=== PATIENT | female | born 1980 | race Caucasian/White ===

== ENCOUNTER 2024-09-14 15:02 | Outpatient (AMB) | payer OTHER, SELFPAY ==
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
[2024-09-14 15:04] VITALS: BP 104/60; PULSE 53; O2SAT 96; BMI 22.8
== END 2024-09-14 15:59 | disposition home or self-care (01) ==
LOC: HO.ENCR 15:02
PROVIDERS: PCP Family Medicine; Visit Provider Student in an Organized Health Care Education/Training Program
DX: R35.89 Other polyuria (principal)
CPT/HCPCS: 99204

== ENCOUNTER → 2024-09-14 15:02 | Outpatient (BNVA) | payer OTHER, SELFPAY | PROVIDERS: PCP Family Medicine; Visit Provider Student in an Organized Health Care Education/Training Program | DX: R35.89 Other polyuria (principal) | CPT/HCPCS: 99202 ==

== ENCOUNTER 2024-09-16 08:58 | Outpatient (REF) | payer OTHER, SELFPAY ==
[2024-09-16 10:02] LABS: Anion Gap 11 (12-20); Blood Urea Nitrogen 11 mg/dL (9-16); Calcium 9.4 mg/dL (8.4-10.2); Carbon Dioxide 24 mmol/L (22-29); Chloride 108 mmol/L (96-108); Estimated Glomerular Filt Rate > 60; Glucose Random 97 mg/dL (60-115); Potassium 4.1 mmol/L (3.3-5.1); Sodium 139 mmol/L (135-145)
[2024-09-16 10:34] LABS: Sodium Urine Random < 20.0 mmol/L
[2024-09-16 11:11] LABS: Osmolality, Serum 286 mosm/kg (281-305)
[2024-09-16 11:15] LABS: Osmolality Urine 162 mosm/kg (373-1093)
[2024-09-16 12:20] LABS: Creatinine, mg/dL 50.33; Potassium, 24U 38.4 mmol/L
[2024-09-16 12:23] LABS: Creatinine, mg/dL 50.56
[2024-09-16 12:59] LABS: Creatinine, 24Hr Urine 1.1 G/Day (1.0-2.0); Potassium, 24 Hr Urine 80.6 mmol/Day (25-125); Sodium 24 Hr Urine 109.2 mmol/Day (40-220); Total Volume 24 Hour Urine 2100 mL
[2024-09-16 13:00] LABS: Creatinine, 24Hr Urine 1.1 G/Day (1.0-2.0); Total Volume 24 Hour Urine 2100 mL
[2024-09-18 19:38] LABS: Urea, 24 Hr Urine 8 g/24 h (6-17)
[2024-09-22 01:38] LABS: Copeptin 2.6 pmol/L (< OR = 13.7)
== END 2024-09-16 08:59 | disposition home or self-care (01) ==
LOC: HO.LAB 08:58
PROVIDERS: PCP Family Medicine; Visit Provider Student in an Organized Health Care Education/Training Program
DX: R35.89 Other polyuria (principal)
CPT/HCPCS: 36415; 80048; 82436; 82570; 83930; 83935; 84133; 84300; 84540; 86255

== ENCOUNTER 2024-10-25 14:26 | Outpatient (REF) | payer OTHER, SELFPAY ==
[2024-10-25 15:42] LABS: Specific Gravity - Urine 1.010 (1.005-1.025)
== END 2024-10-25 14:27 | disposition home or self-care (01) ==
LOC: HO.LAB 14:26
PROVIDERS: PCP Family Medicine; Visit Provider Student in an Organized Health Care Education/Training Program
DX: R35.89 Other polyuria (principal)
CPT/HCPCS: 36415; 84443; 99212

== ENCOUNTER 2024-10-25 14:26 | Outpatient (AMB) | payer OTHER, SELFPAY ==
[2024-10-25 14:27] VITALS: BP 100/66; PULSE 90; O2SAT 97; BMI 22.6
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
== END 2024-10-25 14:52 | disposition home or self-care (01) ==
LOC: HO.ENCR 14:26
PROVIDERS: PCP Family Medicine; Visit Provider Student in an Organized Health Care Education/Training Program
DX: R35.89 Other polyuria (principal)
CPT/HCPCS: 99213